=== PATIENT | male | born 1995 | race Caucasian/White ===

== ENCOUNTER 2017-01-26 17:55 | Emergency (ER) | payer MEDICAID ==
[2017-01-26] MEDS ORDERED: Sodium Chloride 0.9% 10 ML Syringe FLUSH PRN (18:14)
[2017-01-26] MEDS ORDERED: Ketorolac 30 MG/ML SDV IVPUSH ONE (18:14)
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
[2017-01-26 20:02] VITALS: BP 128/81
--- NOTE | 2017-01-28 09:41 | CR ---
Mandible Comp Min 4V HISTORY: Mandible COMPARISON: None FINDINGS: No evidence for mandible fracture or dislocation. No bony destructive process.
--- NOTE | 2017-01-28 09:43 | CR ---
Cervical Spine 2V or 3V HISTORY: Pain COMPARISON: 11/07/2010 FINDINGS: C7 is not visualized on lateral view. The first 6 cervical vertebral body heights and disc spaces are well-maintained. No fracture or subluxation. The C1-C2 relationship appears normal. Anteri or soft tissues appear unremarkable.
== END 2017-01-26 21:23 | disposition home or self-care (01) ==
LOC: JP.ED 17:55
DX: S00.81XA Abrasion of other part of head, initial encounter (principal); S80.812A Abrasion, left lower leg, initial encounter; F10.120 Alcohol abuse with intoxication, uncomplicated; V87.7XXA Person injured in collision between other specified motor vehicles (traffic), initial encounter; T14.8XXA Other injury of unspecified body region, initial encounter
CPT/HCPCS: 36415; 70110; 72040; 72125; 96374; 99284; G0480; J1885; J7050

== ENCOUNTER 2018-11-29 01:18 | Emergency (ER) | payer MEDICAID, OTHER ==
[2018-11-29 01:33] VITALS: BP 142/87; PULSE 109
--- NOTE | 2018-11-29 01:49 | EDM.PDOC ---
ED HPI GENERAL MEDICAL PROBLEM - General Chief Complaint: Lower Extremity Injury/Pain Stated Complaint: FELL,HURT RIGHT ANKLE Time Seen by Provider: 11/29/18 01:30 Source of Information: Reports: Patient History Limitations: Reports: No Limitations - History of Present Illness INITIAL COMMENTS - FREE TEXT/NARRATIVE: 23-year-old male was running down the hallway one and a half hours ago when he stumbled and turned his right ankle. He felt and heard a pop and now has significant swelling over the lateral ankle. No other injury. He's having difficulty bearing weight. Onset: Sudden Duration: Hour(s): (1-1/2 hours ago) Location: Reports: Lower Extremity, Right Associated Symptoms: Reports: No Other Symptoms - Related Data Allergies Allergy/AdvReac Type Severity Reaction Status Date / Time No Known Allergies Allergy Verified 11/29/18 01:26 Home Meds: Home Meds Omeprazole 1 tab PO DAILY 09/25/15 [History] Past Medical History HEENT History: Reports: Otitis Media Musculoskeletal History: Reports: Fracture Psychiatric History: Reports: Anxiety - Infectious Disease History Infectious Disease History: Reports: Chicken Pox - Past Surgical History HEENT Surgical History: Reports: Myringotomy w Tube(s) Social & Family History - Tobacco Use Smoking Status *Q: Current Some Day Smoker Years of Tobacco use: 4 Packs/Tins Daily: 0.2 - Caffeine Use Caffeine Use: Reports: Soda Review of Systems - Review of Systems Review Of Systems: See Below Constitutional: Denies: Fever Respiratory: Reports: No Symptoms Cardiovascular: Reports: No Symptoms GI/Abdominal: Reports: No Symptoms Skin: Reports: Bruising (Some bruising developing over the lateral ankle) Neurological: Denies: Paresthesia ED EXAM, GENERAL - Physical Exam Exam: See Below Exam Limited By: No Limitations General Appearance: Alert, No Apparent Distress Respiratory/Chest: No Respiratory Distress Cardiovascular: Normal Peripheral Pulses Extremities: Other (Exam is otherwise limited to the right ankle. He has significant soft tissue swelling and tenderness to palpation over the lateral malleolus. The medial malleolus is nontender.) Course - Vital Signs Last Recorded V/S: Last Vital Signs Temp 97.2 F 11/29/18 01:32 Pulse 109 H 11/29/18 01:32 Resp 14 11/29/18 01:32 BP 142/87 H 11/29/18 01:32 Pulse Ox 96 11/29/18 01:32 - Orders/Labs/Meds Orders: Active Orders 24 hr Category Date Time Status DME for Discharge [COMM] Stat Oth 11/29/18 01:50 Ordered Meds: Medications Discontinued Medications Generic Name Dose Route Start Last Admin Trade Name Praneeth PRN Reason Stop Dose Admin Ibuprofen 800 mg 11/29/18 01:50 11/29/18 01:55 Motrin PO 11/29/18 01:51 800 mg ONETIME ONE Administration - Re-Assessments/Exams Free Text/Narrative Re-Assessment/Exam: 11/29/18 01:45 A 2 view ankle x-ray was obtained. 11/29/18 01:49 X-rays negative for fracture. A three-inch Terrell wrap was applied to the foot and crutches were fitted. He was given 600 mg of ibuprofen, encouraged to continue that on a regular basis over the next several days. Increase activity as tolerated. Departure - Departure Time of Disposition: 02:03 Disposition: Home, Self-Care 01 Clinical Impression: Sprain of right ankle Qualifiers: Encounter type: initial encounter Involved ligament of ankle: anterior talofibular ligament Qualified Code(s): S93.491A - Sprain of other ligament of right ankle, initial encounter - Discharge Information Instructions: Crutch Use, Adult, [id number], Ankle Sprain, [id number] Referrals: PCP,None [Primary Care Provider] - Forms: ED Department Discharge Care Plan Goals: Continue wrapping firmly to control swelling, elevation and ice will help as well. Use crutches for the next few days before increasing activity as tolerated along with weightbearing. Consider rechecking at the clinic in 3-5 days if still unable to bear weight. A regular dose of ibuprofen or naproxen for pain and swelling would be beneficial. - My Orders Last 24 Hours: My Active Orders 11/29/18 01:50 DME for Discharge [COMM] Stat - Assessment/Plan Last 24 Hours: My Active Orders 11/29/18 01:50 DME for Discharge [COMM] Stat
[2018-11-29] MEDS ORDERED: Ibuprofen 800 MG Tab PO ONE (01:50)
--- NOTE | 2018-11-29 02:11 | CRLCR ---
INDICATION: Pain after fall. COMPARISON: None. FINDINGS/IMPRESSION: Right ankle, 3 views. Prominent soft tissue swelling over the lateral malleolus. No fracture identified. No dislocation. Unremarkable ankle mortise. Dictated by Julien Grover MD @ 11/29/2018 2:10:05 AM Dictated by: Julien Grover MD @ 11/29/2018 02:10:19 (Electronically Signed)
== END 2018-11-29 02:04 | disposition home or self-care (01) ==
LOC: JP.ED 01:18
DX: S93.491A Sprain of other ligament of right ankle, initial encounter (principal); F17.210 Nicotine dependence, cigarettes, uncomplicated; X50.1XXA Overexertion from prolonged static or awkward postures, initial encounter
CPT/HCPCS: 73610; 99283; A9270

== ENCOUNTER 2019-08-07 19:47 | Emergency (ER) | payer MEDICAID, OTHER ==
[2019-08-07 20:26] VITALS: BP 143/83; PULSE 55
[2019-08-07] MEDS ORDERED: HYDROmorphone 0.5 MG/0.5 ML Syringe IM ONE (20:40)
--- NOTE | 2019-08-07 20:41 | EDM.PDOC ---
ED HPI GENERAL MEDICAL PROBLEM - General Chief Complaint: ENT Problem Stated Complaint: L EAR SURGERY TODAY - IN A LOT OF PAIN Time Seen by Provider: 08/07/19 20:40 Source of Information: Reports: Patient History Limitations: Reports: No Limitations - History of Present Illness INITIAL COMMENTS - FREE TEXT/NARRATIVE: pt had surgery by Dr Betancur today on his left ear. He has tylenol 3 for pain. He is not getting relief with that and he is very uncomfortable. Onset: Today, Other (pt had surgery today. ) Duration: Hour(s): Location: Reports: Face Associated Symptoms: Reports: No Other Symptoms left ear Pain Score (Numeric/FACES): 7 - Related Data Allergies Allergy/AdvReac Type Severity Reaction Status Date / Time No Known Allergies Allergy Verified 08/07/19 20:24 Home Meds: Home Meds Omeprazole 1 tab PO DAILY 09/25/15 [History] Sertraline HCl 25 mg PO DAILY 08/07/19 [History] Past Medical History HEENT History: Reports: Otitis Media Gastrointestinal History: Reports: Gastritis, GERD Musculoskeletal History: Reports: Fracture Psychiatric History: Reports: Anxiety - Infectious Disease History Infectious Disease History: Reports: Chicken Pox - Past Surgical History HEENT Surgical History: Reports: Myringotomy w Tube(s), Other (See Below) Other HEENT Surgeries/Procedures: left ear surgery GI Surgical History: Reports: EGD Social & Family History - Tobacco Use Smoking Status *Q: Former Smoker Used Tobacco, but Quit: Yes Month/Year Tobacco Last Used: 03/2019 - Caffeine Use Caffeine Use: Reports: Coffee - Recreational Drug Use Recreational Drug Use: No ED ROS ENT - Review of Systems Review Of Systems: See Below Constitutional: Reports: No Symptoms HEENT: Reports: Ear Pain, Other (pt had surgery on his left ear drum today. ) Respiratory: Reports: No Symptoms Cardiovascular: Reports: No Symptoms Endocrine: Reports: No Symptoms GI/Abdominal: Reports: No Symptoms : Reports: No Symptoms Musculoskeletal: Reports: No Symptoms Skin: Reports: No Symptoms Neurological: Reports: No Symptoms ED EXAM, ENT - Physical Exam Exam: See Below Text/Narrative:: pt had ear surgery today and his pain is out of control Exam Limited By: No Limitations General Appearance: Alert, Anxious, Mild Distress, Other (pupils are equal and reactive. ) Ears: Other (pt had surgery on the left drum. This was looked at there was no gross bleeding. ) Nose: Normal Inspection Mouth/Throat: Normal Inspection Head: Atraumatic Neck: Normal Inspection Respiratory/Chest: No Respiratory Distress Cardiovascular: Regular Rate, Rhythm Course - Vital Signs Last Recorded V/S: Last Vital Signs Temp 36.8 C 08/07/19 20:25 Pulse 55 L 08/07/19 20:25 Resp 14 08/07/19 20:25 BP 143/83 H 08/07/19 20:25 Pulse Ox 98 08/07/19 20:25 - Re-Assessments/Exams Free Text/Narrative Re-Assessment/Exam: 08/07/19 20:51 pt was given dilaudid .5 im Departure - Departure Time of Disposition: 20:52 Disposition: Home, Self-Care 01 Condition: Fair Clinical Impression: Inadequate pain control - Discharge Information Referrals: Lloyd Herbert, [employer] [Primary Care Provider] - Care Plan Goals: percocet 5/325 q6h prn for severe pain # 12. after that use tylenol 3. If pain continues to be out of control call Dr Betancur. Sepsis Event Note - Evaluation Sepsis Screening Result: No Definite Risk - Focused Exam Vital Signs: Vital Signs Temp Pulse Resp BP Pulse Ox 08/07/19 20:25 36.8 C 55 L 14 143/83 H 98 Date Exam was Performed: 08/07/19 Time Exam was Performed: 20:35
== END 2019-08-07 21:13 | disposition home or self-care (01) ==
LOC: JP.ED 19:47
DX: H92.02 Otalgia, left ear (principal); K21.9 Gastro-esophageal reflux disease without esophagitis; F41.9 Anxiety disorder, unspecified; Z79.899 Other long term (current) drug therapy
CPT/HCPCS: 96372; 99282; J1170

== ENCOUNTER 2019-08-21 13:15 | Emergency (ER) | payer MEDICAID ==
[2019-08-21 13:29] VITALS: BP 145/84; PULSE 100
--- NOTE | 2019-08-21 13:48 | EDM.PDOC ---
ED HPI GENERAL MEDICAL PROBLEM - General Chief Complaint: ENT Problem Stated Complaint: L EAR PAIN POST SURGERY Time Seen by Provider: 08/21/19 13:43 Source of Information: Reports: Patient History Limitations: Reports: No Limitations - History of Present Illness INITIAL COMMENTS - FREE TEXT/NARRATIVE: Patient to ED today with c/o left ear pain since having Tympanoplasty on 08/06. Patient reports that he was prescribed Percocet for his pain after surgery, then again by ED provider. He was unhappy with ENT provider that did his surgery so he saw a different ENT provider on Saturday who prescribed Prednisone and [place]. The [place] needed prior authorization so tramadol was prescribed which also needs prior authorization. Patient reports that Tylenol doesn't help his pain. Patient denies any fever/chills or drainage from ear. Patient reports that the pain and popping are now worse since his surgery. Patient is not currently on any antibiotics. Patient took one dose of Prednisone and didn' t like how it made him feel so he didn't take any more. He is in the Emergency Room today wanting something done about his ear and feels that Percocet is the only thing that really helps. Onset: Other (over 2 weeks) left ear Pain Score (Numeric/FACES): 9 - Related Data Allergies Allergy/AdvReac Type Severity Reaction Status Date / Time No Known Allergies Allergy Verified 08/21/19 13:25 Home Meds: Home Meds Omeprazole 1 tab PO DAILY 09/25/15 [History] Sertraline HCl 25 mg PO DAILY 08/07/19 [History] Past Medical History HEENT History: Reports: Otitis Media Gastrointestinal History: Reports: Gastritis, GERD Musculoskeletal History: Reports: Fracture Psychiatric History: Reports: Anxiety, Depression - Infectious Disease History Infectious Disease History: Reports: Chicken Pox - Past Surgical History HEENT Surgical History: Reports: Myringotomy w Tube(s), Other (See Below) Other HEENT Surgeries/Procedures: left ear surgery GI Surgical History: Reports: EGD Social & Family History - Tobacco Use Smoking Status *Q: Never Smoker - Caffeine Use Caffeine Use: Reports: Coffee - Recreational Drug Use Recreational Drug Use: No ED ROS ENT - Review of Systems Review Of Systems: Comprehensive ROS is negative, except as noted in HPI. ED EXAM, ENT - Physical Exam Exam: See Below Exam Limited By: No Limitations General Appearance: Alert, WD/WN, No Apparent Distress Ears: Normal External Exam, Normal Canal, Other (Left TM is scabbed, no drainage , no erythema) Mouth/Throat: Normal Inspection Neck: Supple. No: Lymphadenopathy (R), Lymphadenopathy (L) Respiratory/Chest: No Respiratory Distress Cardiovascular: Regular Rate, Rhythm Neurological: Alert, Oriented Skin: Warm, Dry, Intact Course - Vital Signs Last Recorded V/S: Last Vital Signs Temp 36.3 C 08/21/19 13:27 Pulse 100 08/21/19 13:27 Resp 12 08/21/19 13:27 BP 145/84 H 08/21/19 13:27 Pulse Ox 100 08/21/19 13:27 Alfredo is a 24 year old male who presents to the ED today with c/o left ear pain since tympanoplasty at the end of July, please refer to HPI and focused exam. Patient arrives here hemodynamically stable, he is afebrile, ear appears consistent with typical healing process with no drainage or sing of acute infection. I had a long discussion with patient about his expectations in being here today. He reports "I just want someone to fix my ear". Patient educated that this is not something we do in the ED and he needs to touch base again with ENT. He should finish the prednisone as prescribed as I think this would help with inflammation and swelling. I am not going to refill any narcotic for patient today as he is two weeks out from surgery and if he really still needs a narcotic for pain he will have to get this from ENT. Patient is frustrated with this and requested a note for work today which I did give him. He was discharged in stable condition. Departure - Departure Time of Disposition: 13:44 Disposition: DC/Tfer to Medicaid Nur Fac 64 Condition: Good Clinical Impression: Left ear pain - Discharge Information Referrals: PCP,None [Primary Care Provider] - Additional Instructions: You need to contact ENT for further evaluation, recommendations and pain control. Sepsis Event Note (ED) - Evaluation Sepsis Screening Result: No Definite Risk - Focused Exam Vital Signs: Vital Signs Temp Pulse Resp BP Pulse Ox 08/21/19 13:27 36.3 C 100 12 145/84 H 100
== END 2019-08-21 13:57 ==
LOC: JP.ED 13:15
DX: H92.02 Otalgia, left ear (principal); K21.9 Gastro-esophageal reflux disease without esophagitis; F32.9 Major depressive disorder, single episode, unspecified; F41.9 Anxiety disorder, unspecified; Z79.899 Other long term (current) drug therapy
CPT/HCPCS: 99284

== ENCOUNTER 2019-09-17 10:23 | Emergency (ER) | payer MEDICAID ==
[2019-09-17 10:48] VITALS: BP 162/88; PULSE 107
--- NOTE | 2019-09-17 10:58 | EDM.PDOC ---
ED HPI GENERAL MEDICAL PROBLEM - General Chief Complaint: Headache Stated Complaint: MIGRAINE Time Seen by Provider: 09/17/19 10:56 Source of Information: Reports: Patient, Old Records, RN Notes Reviewed History Limitations: Reports: No Limitations - History of Present Illness INITIAL COMMENTS - FREE TEXT/NARRATIVE: Alfredo is a 24 year old male that presents to the ED with c/o an ongoing migraine since yesterday morning. He started getting these migraines "a few months ago" and reports he's had about 20 headaches total so far. He wakes up with them in the morning. Reports multiple headaches a week. States that he gets photophobia but the lights in the exam room do not appear to bother him. he is sitting comfortably on the bed. This particular headache started on the top of his head yesterday which he rated 4/10. It has been constant since and now rates 6-7/10 and located more in the frontal region. He saw Lloyd Herbert for these symptoms and a MRI of the head with and without contrast was completed on 08/12 with a negative result. The patient saw neurology yesterday in [place] and was prescribed meloxicam, imitrex, and propanolol. He states that it was confirmed by the neurologist that he is having migraines from unknown origin. He denies any aura symptoms. He told the nurse that he didn't get his medications that were prescribed yesterday from the pharmacy yet however he told me that they were in his car. He has not started them yet and plans to "probably start them today". He was told that they might make him dizzy therefore he didn't take them. He is asking for a work note also. His next neurology appointment is in October (he thinks). This headache does not feel any different from the other ones he has experienced lately. Onset: Gradual Onset Date: 09/16/19 Duration: Getting Worse Location: Reports: Head Severity: Severe Improves with: Reports: None Worsens with: Reports: Other ("open eyes really wide") Associated Symptoms: Reports: Nausea/Vomiting Treatments FLOOR HAND: Reports: Other (see below) (has not tried anything) Frontal Headache Pain Score (Numeric/FACES): 7 - Related Data Allergies Allergy/AdvReac Type Severity Reaction Status Date / Time No Known Allergies Allergy Verified 09/17/19 10:33 Home Meds: Home Meds Omeprazole 1 tab PO DAILY 09/25/15 [History] Sertraline HCl 25 mg PO DAILY 08/07/19 [History] Meloxicam [Mobic] 7.5 mg PO ASDIRECTED 09/17/19 [History] Propranolol [Inderal LA] 120 mg PO ASDIRECTED 09/17/19 [History] SUMAtriptan 100 mg PO ASDIRECTED 09/17/19 [History] Past Medical History HEENT History: Reports: Impaired Vision, Otitis Media Gastrointestinal History: Reports: Gastritis, GERD Musculoskeletal History: Reports: Fracture Neurological History: Reports: Migraines Psychiatric History: Reports: Anxiety, Depression - Infectious Disease History Infectious Disease History: Reports: Chicken Pox - Past Surgical History Head Surgeries/Procedures: Reports: None HEENT Surgical History: Reports: Myringotomy w Tube(s), Other (See Below) Other HEENT Surgeries/Procedures: left ear surgery GI Surgical History: Reports: EGD Neurological Surgical History: Reports: None Musculoskeletal Surgical History: Reports: None Dermatological Surgical History: Reports: None Social & Family History - Tobacco Use Smoking Status *Q: Current Every Day Smoker Years of Tobacco use: 1 Packs/Tins Daily: 0.5 Used Tobacco, but Quit: No Second Hand Smoke Exposure: No - Caffeine Use Caffeine Use: Reports: Coffee - Recreational Drug Use Recreational Drug Use: No ED ROS GENERAL - Review of Systems Review Of Systems: See Below Constitutional: Reports: No Symptoms HEENT: Reports: Other. Denies: Vision Change (photophobia) Respiratory: Reports: No Symptoms Cardiovascular: Reports: No Symptoms Endocrine: Reports: No Symptoms GI/Abdominal: Reports: Nausea : Reports: No Symptoms Musculoskeletal: Reports: No Symptoms Skin: Reports: No Symptoms Neurological: Reports: Headache Hematologic/Lymphatic: Reports: No Symptoms Immunologic: Reports: No Symptoms - Physical Exam Exam: See Below Exam Limited By: No Limitations General Appearance: Alert, WD/WN, No Apparent Distress Eye Exam: Bilateral Eye: EOMI, Normal Inspection Ears: Normal External Exam, Hearing Grossly Normal, Normal TMs (left ear tympanoplasty) Nose: Normal Inspection, Normal Mucosa Throat/Mouth: Normal Inspection, Normal Oropharynx Head Exam: Atraumatic, Normocephalic Neck: Normal Inspection, Supple, Non-Tender. No: Lymphadenopathy (R), Lymphadenopathy (L) Respiratory/Chest: No Respiratory Distress, Lungs Clear, Normal Breath Sounds Cardiovascular: Regular Rate, Rhythm, No Murmur GI/Abdominal: Soft, Non-Tender Neuro Exam (Abbreviated): Alert, Oriented, CN II-XII Intact, Normal Cognition, Normal Gait, No Motor/Sensory Deficits Back Exam: Normal Inspection Extremities: Normal Inspection, No Pedal Edema, Normal Capillary Refill Psychiatric: Flat Affect Skin Exam: Warm, Dry, Intact Course - Vital Signs Last Recorded V/S: Last Vital Signs Temp 98.4 F 09/17/19 10:51 Pulse 107 H 09/17/19 10:51 Resp 16 09/17/19 10:51 BP 162/88 H 09/17/19 10:51 Pulse Ox - Orders/Labs/Meds Meds: Medications Discontinued Medications Generic Name Dose Route Start Last Admin Trade Name Praneeth PRN Reason Stop Dose Admin Diphenhydramine HCl 25 mg 09/17/19 11:13 09/17/19 11:27 Benadryl PO 09/17/19 11:14 25 mg ONETIME ONE Administration Ketorolac Tromethamine 60 mg 09/17/19 11:13 09/17/19 11:28 Toradol IM 09/17/19 11:14 60 mg ONETIME ONE Administration Prochlorperazine Maleate 10 mg 09/17/19 11:13 09/17/19 11:27 Compazine PO 09/17/19 11:14 10 mg ONETIME ONE Administration Departure - Departure Time of Disposition: 11:58 Disposition: Home, Self-Care 01 Condition: Good Clinical Impression: Migraine without aura and responsive to treatment - Discharge Information *PRESCRIPTION DRUG MONITORING PROGRAM REVIEWED*: Not Applicable *COPY OF PRESCRIPTION DRUG MONITORING REPORT IN PATIENT TERESSA: Not Applicable Instructions: Recurrent Migraine Headache, [id number] Referrals: PCP,None [Primary Care Provider] - Forms: ED Department Discharge, ED Return to Work/School Form Additional Instructions: You have been given ketorolac in the ER so do not take your meloxicam until after 5:30 pm tonight. Recommend getting your prescriptions from neurology filled and start the propranolol today. Take it easy and do low activity for the rest of today. advance activity as tolerated. make sure you are staying well hydrated. Your urine should be very pale yellow to barely visible in the toilet. Call or return to ED with any worsening of symptoms or concerns. Work note provided. Sepsis Event Note (ED) - Evaluation Sepsis Screening Result: No Definite Risk - Focused Exam Vital Signs: Vital Signs Temp Pulse Resp BP 09/17/19 10:51 98.4 F 107 H 16 162/88 H 09/17/19 10:48 98.4 F 107 H 16 162/88 H
[2019-09-17] MEDS ORDERED: Ketorolac 60 MG/2 ML SDV IM ONE (11:13)
[2019-09-17] MEDS ORDERED: Prochlorperazine 10 MG Tab PO ONE (11:13)
[2019-09-17] MEDS ORDERED: diphenhydrAMINE 25 MG Cap PO ONE (11:13)
== END 2019-09-17 12:10 | disposition home or self-care (01) ==
LOC: JP.ED 10:23
DX: G43.009 Migraine without aura, not intractable, without status migrainosus (principal); F41.9 Anxiety disorder, unspecified; F32.9 Major depressive disorder, single episode, unspecified; K21.9 Gastro-esophageal reflux disease without esophagitis; F17.210 Nicotine dependence, cigarettes, uncomplicated; Z79.899 Other long term (current) drug therapy
CPT/HCPCS: 96372; 99283; A9270; J1885; Q0164

== ENCOUNTER 2022-11-18 14:14 | Emergency (ER) | payer MEDICAID ==
[2022-11-18] MEDS ORDERED: Lidocaine 1% with EPINEPHrine 1:100,000 50 ML MDV SUBCUT ONE (14:29)
[2022-11-18] MEDS ORDERED: Bacitracin Oint 1 GM U/D Packet TOP ONE (14:29)
[2022-11-18] MEDS ORDERED: Diphtheria,Pertussis(Acell),Tetanus Vaccine 0.5 ML Syringe IM ONE (14:29)
[2022-11-18] MEDS ORDERED: Lidocaine 1% 5 ML VIAL INJECT ONE (14:57)
== END 2022-11-18 15:24 | disposition left against medical advice (07) ==
LOC: JP.ED 14:14
DX: Z53.21 Procedure and treatment not carried out due to patient leaving prior to being seen by health care provider (principal)

== ENCOUNTER 2022-11-18 16:25 | Emergency (ER) | payer MEDICAID ==
[2022-11-18 17:01] VITALS: BP 148/80; PULSE 109
[2022-11-18] MEDS ORDERED: Lidocaine 1% with EPINEPHrine 1:100,000 50 ML MDV INJECT ONE (17:43)
[2022-11-18] MEDS ORDERED: Bacitracin Oint 1 GM U/D Packet TOP ONE (18:31)
[2022-11-18] MEDS ORDERED: Diphtheria/Tetanus Toxoids,Adult (Td) 0.5 ML SDV IM ONE (18:46)
== END 2022-11-18 18:57 | disposition home or self-care (01) ==
LOC: JP.ED 16:25
DX: S61.217A Laceration without foreign body of left little finger without damage to nail, initial encounter (principal); K21.9 Gastro-esophageal reflux disease without esophagitis; Z79.899 Other long term (current) drug therapy; Z23 Encounter for immunization; W26.8XXA Contact with other sharp object(s), not elsewhere classified, initial encounter
CPT/HCPCS: 12002; 90471; 90714; 99282-25

== ENCOUNTER 2023-04-05 08:29 | Emergency (ER) | payer MEDICAID ==
[2023-04-05 09:23] VITALS: BP 126/67; PULSE 96
[2023-04-05] MEDS ORDERED: Prochlorperazine 10 MG/2 ML SDV IM ONE (09:34)
== END 2023-04-05 10:06 | disposition home or self-care (01) ==
LOC: JP.ED 08:29
DX: R11.10 Vomiting, unspecified (principal); K21.9 Gastro-esophageal reflux disease without esophagitis
CPT/HCPCS: 96372; 99284; J0780

== ENCOUNTER 2024-02-24 19:56 | Emergency (ER) | payer MEDICAID ==
[2024-02-24 20:11] VITALS: BP 123/69; PULSE 98
[2024-02-24] MEDS: Ketorolac 30 MG/ML SDV IM ONE (21:06)
== END 2024-02-24 21:20 | disposition home or self-care (01) ==
LOC: JP.ED 19:56
DX: H66.93 Otitis media, unspecified, bilateral (principal); K21.9 Gastro-esophageal reflux disease without esophagitis; F17.210 Nicotine dependence, cigarettes, uncomplicated; Z79.899 Other long term (current) drug therapy
CPT/HCPCS: 96372; 99282; J1885

== ENCOUNTER 2024-04-18 11:35 | Emergency (ER) | payer MEDICAID ==
[2024-04-18 11:51] VITALS: BP 162/53; PULSE 90
== END 2024-04-18 12:24 | disposition home or self-care (01) ==
LOC: JP.ED 11:35
DX: H60.92 Unspecified otitis externa, left ear (principal); K21.9 Gastro-esophageal reflux disease without esophagitis; Z79.899 Other long term (current) drug therapy
CPT/HCPCS: 87070; 87077; 87184; 87186; 87205; 99283